=== PATIENT | female | born 1975 | race Caucasian/White ===

== ENCOUNTER 2020-03-16 13:57 | Emergency (ER) | payer OTHER, SELFPAY ==
[2020-03-16 13:54] VITALS: BP 157/106; PULSE 96; RESP 20; TEMP 37.1; O2SAT 100
--- NOTE | 2020-03-16 14:02 | ECG_ITS ---
Measurements Intervals [place] Rate: 91 P: 67 GA: 137 QRS: 58 QRSD: 83 T: 12 QT: 342 QTc: 422 Interpretive Statements SINUS RHYTHM POSSIBLE LEFT ATRIAL ENLARGEMENT BASELINE WANDER- III, AVL, AVF, V3-V6 BORDERLINE ECG Electronically Signed On 03-16-2020 17:31:23 CDT by Miguel Gomez D.O.
[2020-03-16 14:03] VITALS: BP 133/87; PULSE 94; RESP 26; O2SAT 100
[2020-03-16] MEDS: SODIUM CHLORIDE 0.9% IV 1,000 ML 999 ML IV CONT (14:40)
[2020-03-16 14:50] LABS: Basophils Percent Auto 0.5 % (0.2-1.2); Eosinophils Absolute Auto 0.1 K/mm3 (0-0.3); Hematocrit 38.9 % (37.0-47.0); Hemoglobin 12.9 g/dL (12.0-15.0); Immature Granulocyte Absolute 0.01 K/mm3 (0.00-0.031); Immature Granulocyte Percent A 0.2 % (0-0.5); Lymphocytes Absolute Auto 1.71 K/mm3 (0.9-3.2); Lymphocytes Percent Auto 28.4 % (18.3-44.2); Mean Corpuscular HGB Conc 33.2 g/dl (32-36); Mean Corpuscular Hemoglobin 30.1 pg (26-34); Mean Corpuscular Volume 90.7 fl (80-100); Mean Platelet Volume 10.6 fl (7.4-10.4); Monocytes Absolute Auto 0.4 K/mm3 (0.1-0.6); Neutrophils Absolute Auto 3.8 K/mm3 (1.3-6.7); Neutrophils Percent Auto 62.9 % (45.5-73.1); Platelet Count Result 196 k/mm3 (150-375); Red Blood Count 4.29 M/mm3 (4.2-5.4); Red Cell Distribution Width 11.9 % (11.5-14.5)
[2020-03-16 14:53] LABS: Alveolar/Arterial O2 Gradient 40.6 mmHg; Base Excess ABG -1.5 mEq/l (+/-2.0); Carboxyhemoglobin 0.1 % THb (0-2.0); Device ROOM AIR; Fractional Inspired Oxygen 21 %; HCO3 ABG 22.7 mEq/l (22.0-26.0); Methemoglobin ABG 0.4 %THb (0-1.5); Modified Allen's Test Pass; Oxygen Content ABG 16.8 %vol (16.0-22.0); Oxygen Saturation ABG 93.2 % (95.0-100.0); Oxyhemoglobin 91.1 % THb (90.0-100.0); PCO2 ABG 36.6 mmHg (35.0-45.0); PO2 ABG 65.3 mmHg (80.0-100.0); PO2 FiO2 Ratio Arterial Blood 3.11 %; Reduced Hemoglobin 8.4 %THb (0-5.0); Site Drawn LEFT RADIAL; Total Hemoglobin 13.1 g/dL (12.0-18.0)
[2020-03-16 15:02] LABS: Alanine Aminotransferase 13 U/L (4-35); Albumin Level 4.1 g/dL (3.5-5.1); Alkaline Phosphatase 80 U/L (38-126); Aspartate Amino Transferase 19 U/L (14-36); Bilirubin,Total 0.2 mg/dL (0.2-1.3); Blood Urea Nitrogen 19 mg/dL (7-17); Calcium 8.8 mg/dL (8.4-10.2); Carbon Dioxide 24 mmol/L (22-30); Chloride 104 mmol/L (98-107); Estimated Glomerular Filt Rate > 60; Glucose 86 mg/dL (65-105); Sodium 135 mmol/L (137-145)
--- NOTE | 2020-03-16 15:18 | PC.NURSE ---
Pt placed on bedpan by tech, no urine was collected for sample.
[2020-03-16 15:58] VITALS: BP 135/77; PULSE 71; RESP 14; O2SAT 99
[2020-03-16 16:01] LABS: Thyroid Stimulating Hormone Reflex 0.668 uIU/mL (0.465-4.68)
[2020-03-16 16:17] LABS: Amphetamine Screen Urine Negative (Negative); Barbiturate Screen Urine Negative (Negative); Benzodiazepines Screen Urine Negative (Negative); Cannabinoid Screen Urine Negative (Negative); Cocaine Screen Urine Negative (Negative); Methadone Screen Urine Negative (Negative); Opiate Screen Urine Negative (Negative); Phencyclidine Screen Urine Negative (Negative)
--- NOTE | 2020-03-16 16:35 | PC.NURSE ---
Pt ambulating w/o difficulty. Pt stating I am ready to go home. I am feeling back to normal.
--- NOTE | 2020-03-16 16:46 | ED.GENADULT ---
HPI - General Adult General Chief complaint: Neuro Symptoms/Deficit Stated complaint: lightheaded/numbness History of Present Illness HPI narrative: Patient is a 44-year-old female who presents the ER feeling lightheaded and tingly. Reports tingling to her arms and chest and back but not to her face. Upon arrival here breathing heavily and shaking. Reports symptoms began after eating lunch. She started new antibiotic yesterday evening for potential cellulitis of her left foot. No history of panic attacks. Denies any new stressors in her life. No focal weakness of an arm or leg. No chest pain or chest pressure. Related Data Home Medications Medication Instructions Recorded Confirmed sulfamethoxazole-trimethoprim 1 tablet PO HS 03/16/20 03/16/20 [Bactrim] Allergies Allergy/AdvReac Type Severity Reaction Status Date / Time No Known Allergies Allergy Verified 03/16/20 14:01 Review of Systems Review of Systems: All systems reviewed & are unremarkable except as noted in HPI and below Constitutional: Constitutional: Denies chills, Denies fever(s) and Reports weakness ENT: Denies nasal congestion and Denies sore throat Cardiovascular: Cardiovascular: Denies chest pain and Denies radiating jaw, neck or arm pain Respiratory: Respiratory: Denies cough, Denies dyspnea and Denies wheezing Gastrointestinal: Gastrointestinal: Denies abdominal pain, Denies nausea and Denies vomiting Neurologic: Reports dizziness, Denies headache(s), Denies focal weakness and Reports numbness PMFSH Past Medical History Medical History (Updated 03/16/20 @ 16:51 by Kwabena López MD) No pertinent past medical history Surgical History Surgical History (Updated 03/16/20 @ 16:49 by Kwabena López MD) No pertinent past surgical history Social History Social History (Updated 03/16/20 @ 16:49 by Kwabena López MD) Smoking status: Never smoker Gender identity (if verbalized by the patient): Female Exam Narrative: Exam Narrative: GENERAL: Well-appearing, well-nourished, and in no acute distress. HEAD: Normocephalic, atraumatic. EYES: PERRL and EOMI. ENT: Mucous membranes moist. CHEST: Clear to auscultation. No respiratory distress. HEART: Regular rate and rhythm. Normal peripheral pulses. ABDOMEN: Soft, nontender, nondistended. EXTREMITIES: Normal range of motion. Abrasions to left foot with slight warmth over the dorsal aspect of the left foot. No purulent drainage or overt cellulitis. NEURO: No focal deficits. Alert and oriented x3. PSYCH: Flat affect and speaking very slowly. Course Course Emergency Course: Patient hydrated. Feels much better at this time. Informed of results. Discharge home. Possible anxiety attack versus adverse reaction to medication. Will discontinue Bactrim and start on Keflex. Vital Signs Vital signs: Vital Signs Temperature 98.7 F 03/16/20 13:54 Pulse Rate 96 03/16/20 13:54 Respiratory Rate 20 03/16/20 13:54 Blood Pressure 157/106 H 03/16/20 13:54 Pulse Oximetry 100 03/16/20 13:54 Temperature 98.7 F 03/16/20 13:54 Pulse Rate 71 03/16/20 15:58 Respiratory Rate 14 03/16/20 15:58 Blood Pressure 135/77 03/16/20 15:58 Pulse Oximetry 99 03/16/20 15:58 Medical Decision Making Vital Signs Vital Signs: Vital Signs Temperature 98.7 F 03/16/20 13:54 Pulse Rate 96 03/16/20 13:54 Respiratory Rate 20 03/16/20 13:54 Blood Pressure 157/106 H 03/16/20 13:54 Pulse Oximetry 100 03/16/20 13:54 Temperature 98.7 F 03/16/20 13:54 Pulse Rate 71 03/16/20 15:58 Respiratory Rate 14 03/16/20 15:58 Blood Pressure 135/77 03/16/20 15:58 Pulse Oximetry 99 03/16/20 15:58 Lab Data Result diagrams: 03/16/20 14:44 03/16/20 14:44 Labs: Lab Results 03/16/20 03/16/20 03/16/20 Range/Units 14:44 14:44 14:44 WBC 6.0 (4.5-10.0) K/mm3 RBC 4.29 (4.2-5.4) M/mm3 Hgb 12.9 (12.0-15.
[2020-03-16 17:00] VITALS: BP 127/84; PULSE 85; RESP 17; O2SAT 100
== END 2020-03-16 17:01 | disposition home or self-care (01) ==
PROVIDERS: Emergency Provider Emergency Medicine; PCP Family Medicine
DX: R20.2 Paresthesia of skin (principal); T36.8X5A Adverse effect of other systemic antibiotics, initial encounter
CPT/HCPCS: 36415; 36600; 80053; 80307; 82375; 82805; 83050; 84443; 85025; 93005; 96360; 99283; J7030

== ENCOUNTER 2020-11-22 09:53 | Emergency (ER) | payer OTHER, SELFPAY ==
--- NOTE | ~2020-11-22 | XR_ITS ---
EXAMINATION: XR chest 2V EXAM DATE: 11/22/2020 11:18 INDICATION: Lightheadedness, dizziness, high blood pressure. TECHNIQUE: Frontal and lateral projections of the chest obtained and reviewed. Comparison is made to prior examination from 12/06/2018. FINDINGS: The lungs are clear. There are no pleural effusions. The cardiomediastinal silhouette is within normal limits. There is no pneumothorax suspected. There is mild upper thoracic levoscoliosi s, lower thoracic dextroscoliosis. IMPRESSION: No acute cardiopulmonary findings. Reviewed, dictated and finalized at location B. D UP COMEDIAN
[2020-11-22 10:04] VITALS: BP 140/78; PULSE 81; RESP 18; TEMP 36.3; O2SAT 100
[2020-11-22 10:08] VITALS: PULSE 76
[2020-11-22 10:16] LABS: Basophils Percent Auto 0.3 % (0.2-1.2); Eosinophils Absolute Auto 0.1 K/mm3 (0-0.3); Eosinophils Percent Auto 1.3 % (0-4.4); Hematocrit 41.5 % (37.0-47.0); Hemoglobin 13.8 g/dL (12.0-15.0); Immature Granulocyte Absolute 0.01 K/mm3 (0.00-0.031); Immature Granulocyte Percent A 0.2 % (0-0.5); Lymphocytes Absolute Auto 2.26 K/mm3 (0.9-3.2); Lymphocytes Percent Auto 35.4 % (18.3-44.2); Mean Corpuscular HGB Conc 33.3 g/dl (32-36); Mean Corpuscular Hemoglobin 30.1 pg (26-34); Mean Corpuscular Volume 90.4 fl (80-100); Monocytes Absolute Auto 0.4 K/mm3 (0.1-0.6); Monocytes Percent Auto 6.1 % (2.6-8.5); Neutrophils Absolute Auto 3.6 K/mm3 (1.3-6.7); Neutrophils Percent Auto 56.7 % (45.5-73.1); Platelet Count Result 225 k/mm3 (150-375); Red Blood Count 4.59 M/mm3 (4.2-5.4); Red Cell Distribution Width 11.7 % (11.5-14.5); White Blood Count 6.4 K/mm3 (4.5-10.0)
[2020-11-22 10:24] LABS: Add Urine Microscopic? YES; Appearance Urine Clear (Clear); Bacteria Urine Trace /hpf; Bilirubin Urine Negative (Negative); Blood Urine Negative (Negative); Color Urine Colorless (Yellow); Glucose Urine UA Negative (Negative); Ketones Urine Negative (Negative); Leukocyte Esterase Ur Trace LEU/UL (Negative); Nitrate Urine Negative (Negative); Protein Urine Negative (Negative); RBC Urine 0-2 /hpf (0-2); Specific Grav Ur 1.005 (1.001-1.035); Squamous Epithelial Cell Urine Occasional /hpf (Few); Urobilinogen Urine Negative mg/dL (<2.0); WBC Urine 0-3 /hpf
[2020-11-22 10:29] LABS: Alanine Aminotransferase 15 U/L (4-35); Albumin Level 4.5 g/dL (3.5-5.1); Alkaline Phosphatase 66 U/L (38-126); Anion Gap 9 mmol/L (8-16); Aspartate Amino Transferase 23 U/L (14-36); Bilirubin,Total 0.7 mg/dL (0.2-1.3); Blood Urea Nitrogen 20 mg/dL (7-17); Carbon Dioxide 25 mmol/L (22-30); Chloride 106 mmol/L (98-107); Estimated CRCL calculation 76 ml/min; Estimated Glomerular Filt Rate > 60; Glucose 88 mg/dL (65-105); Potassium 3.5 mmol/L (3.4-5.0); Sodium 140 mmol/L (137-145)
--- NOTE | 2020-11-22 11:11 | ECG_ITS ---
Measurements Intervals [place] Rate: 67 P: 71 PA: 130 QRS: 74 QRSD: 82 T: 26 QT: 402 QTc: 426 Interpretive Statements SINUS RHYTHM POSSIBLE LEFT ATRIAL ENLARGEMENT INCOMPLETE RIGHT BUNDLE BRANCH BLOCK BASELINE WANDER- III BORDERLINE ECG Electronically Signed On 11-22-2020 11:36:10 MASK DESIGN ENGINEER by Miguel Gomez D.O.
--- NOTE | 2020-11-22 11:12 | ED.GENADULT ---
HPI - General Adult General Chief complaint: Unspecified Stated complaint: Unspecified Time Seen by Provider: 11/22/20 10:18 Source: patient Mode of arrival: ambulatory Limitations: no limitations History of Present Illness HPI narrative: This is a 45-year-old female that presents to the emergency department for not feeling right. Reports she was feeling lightheaded and just generally unwell. Reports she saw some CBD oil in her cabinet. Reports she took the rest of it. Reports since she is really not feeling great. Reports she feels out of her body. Denies fever, chest pain, shortness of breath, abdominal pain, vomiting, or dysuria. Related Data Home Medications Medication Instructions Recorded Confirmed No Home Medications 11/22/20 11/22/20 Allergies Allergy/AdvReac Type Severity Reaction Status Date / Time sulfamethoxazole Allergy Other Verified 11/22/20 10:06 [From Bactrim] trimethoprim [From Bactrim] Allergy Other Verified 11/22/20 10:06 Review of Systems Review of Systems: Narrative: CONSTITUTIONAL: Denies fever CARDIOVASCULAR: Denies chest pain RESPIRATORY: Denies dyspnea. GASTROINTESTINAL: Denies vomiting GENITOURINARY: Denies dysuria or hematuria. All systems reviewed & are unremarkable except as noted in HPI and below PMFSH Past Medical History Medical History (Updated 11/22/20 @ 13:26 by Nella Spencer PA-C) Benign essential tremor No pertinent past medical history Surgical History Surgical History (Updated 03/18/20 @ 08:17 by Shawna Weber) No pertinent past surgical history Family History Family History (System 03/18/20 @ 08:17 by Shawna Weber) Mother Hypertension Father Hypertension Family history of diabetes mellitus in first degree relative Family history of obesity Sibling Asthma Grandparent Carcinoma of colon Family history of Alzheimer's disease Family history of malignant neoplasm of uterus Social History Social History (System 03/18/20 @ 08:17 by Shawna Weber) Social History: , 2 children ages 4 yrs and 7 yrs. Retired nurse. Smoking status: Never smoker Alcohol intake: current Gender identity (if verbalized by the patient): Female Exam Narrative: Exam Narrative: GENERAL: Well-appearing, well-nourished, and in no acute distress. HEAD: Normocephalic, atraumatic. EYES: PERRLA and EOMI. ENT: Nares clear, no rhinorrhea or epistaxis. Mucous membranes moist. Oropharynx without tonsillar hypertrophy exudate or other lesions. Bilateral TMs pearly thomason non-bulging NECK: Supple. No adenopathy or masses. CHEST: Clear to auscultation. No respiratory distress. No wheezes rales or rhonchi HEART: Regular rate and rhythm. No murmur heard. Normal peripheral pulses. EXTREMITIES: Normal range of motion. No edema. SKIN: Warm, dry, no rash. NEURO: No focal deficits. Alert and oriented x3. Cranial nerves II through XII grossly intact PSYCH: Anxious Course Vital Signs Vital signs: Vital Signs Temperature 97.4 F L 11/22/20 10:04 Pulse Rate 81 11/22/20 10:04 Respiratory Rate 18 11/22/20 10:04 Blood Pressure 140/78 11/22/20 10:04 Pulse Oximetry 100 11/22/20 10:04 Temperature 97.4 F L 11/22/20 10:04 Pulse Rate 76 11/22/20 10:08 Respiratory Rate 18 11/22/20 10:04 Blood Pressure 140/78 11/22/20 10:04 Pulse Oximetry 100 11/22/20 10:04 Medical Decision Making MDM Narrative Medical decision making narrative: Patient presents the emergency department after an episode of lightheadedness this morning. She proceeded to take some CBD oil after which made her feel worse. Hydrated while in the ED with improvement in symptoms. Reports she feels much better now. Her vitals are stable. CBC and metabolic panel without concerning findings. UA without evidence of infection. TSH is normal. Bedside test was negative. Chest x-ray without acute findings. EKG without concerning changes. Mar
[2020-11-22] MEDS: SODIUM CHLORIDE 0.9% IV 1,000 ML 999 ML IV CONT (11:25)
[2020-11-22 13:33] VITALS: BP 122/85; PULSE 68; RESP 18; O2SAT 97
[2020-11-22 14:00] LABS: Amphetamine Screen Urine Negative (Negative); Barbiturate Screen Urine Negative (Negative); Benzodiazepines Screen Urine Negative (Negative); Cannabinoid Screen Urine Positive (Negative); Cocaine Screen Urine Negative (Negative); Methadone Screen Urine Negative (Negative); Opiate Screen Urine Negative (Negative); Phencyclidine Screen Urine Negative (Negative)
== END 2020-11-22 13:35 | disposition home or self-care (01) ==
PROVIDERS: Physician Assistant; Emergency Provider Emergency Medicine
DX: R42 Dizziness and giddiness (principal); I45.10 Unspecified right bundle-branch block; R94.31 Abnormal electrocardiogram [ECG] [EKG]
CPT/HCPCS: 36415; 71046; 80053; 80307; 81001; 81025; 84443; 85025; 93005; 96360; 99283; J7030

== ENCOUNTER 2021-01-21 10:00 | Outpatient (RCR) | payer OTHER, SELFPAY ==
--- NOTE | 2020-12-05 14:00 | PTOPEVAL ---
INITIAL PHYSICAL THERAPY EVALUATION and PLAN OF CARE Thank you for referring Zahida Broussard to [facility].? Zahida is scheduled to be seen for physical therapy? 1x/week for 6 weeks. Please review, sign, date and return this plan of care BAILEY. I agree with and certify that the following plan of care is medically necessary. Referring Physician Date Admitting Provider: Attending Provider: Ivory Mora, VISITING PROFESSOR Referring Provider: *PT Outpatient Evaluation Start: 12/05/20 12:39 Freq: Status: Active Protocol: Document 12/05/20 12:35 JUAN (Rec: 12/05/20 14:00 JUAN [id number]) Therapy Assessment Status Assessment Status Assessment Status Evaluation Outpatient Past Medical History Neurological History Hx Other Neurological Disorders Yes: nonintentional tremors - hands/arms Evaluation Information Problem Diagnosis urinary incontinence Onset worsening over last year Cause childbirth with 1st child Subjective Information Zahida stated began to have Query Text:As Reported By Patient/ leakage with any type of Family activity, exertion, cough, sneeze. On occasions will have increase in leakage if full bladder. She feels it really started after of 1st child - prolonged labor and delivery. Prior Level of Function Activity Level (Last 3 Months) Occupation homemaker RN by education Hand Dominance Right Medications Home Meds (Include: OTC, RX, Vitamins, none Herbals, Dose, Route,and Frequency) Query Text:Home Med Entries Will No Longer Recall From Past Visits. Home Meds Must Be Re-entered With Each Visit. Home Setting Home Type House,Multiple Levels Environmental Barriers Stairs, Greater than 4 Living Situation With Minor Child,With Spouse Mobility Assistive Devices (Used Last 3 None Months) Comments Additional Prior Level of Function recreation - playing with Comments children, used to walk and exercise - limited since onset COVID Pain Assessment Timing of Pain Assessment Timing of Pain Assessment Assessment Self Report Self Report Pain Level 0 Pain Score Pain Score 0: Self Report Cervical and Lumbar ROM Lumbar ROM Lumbar ROM WNL Normal Lumbar Segmental Motion Yes Lumbar Comments symmetrical SIJ mobility with standing flexion test Lower Extremity Range of Motion Hi
--- NOTE | 2021-01-21 10:53 | PTOPEVAL ---
PHYSICAL THERAPY DISCHARGE SUMMARY Thank you for referring Zahida Broussard to [facility].? Zahida has been seen for a total of 7 visits. She has met all goals set - increased levator ani strength, decrease use of pads, and improved functional abilities. She is ready for discharge from PT to [facility]. I agree with Zahida's discharge from PT. Referring Physician Date Attending Provider: Ivory Mora, CONING MACHINE OPERATOR Therapy Assessment Status Assessment Status Assessment Status Discharge Evaluation Information Problem Diagnosis urinary incontinence Subjective Information Zahida reports that she is Query Text:As Reported By Patient/ still getting up in morning Family around 5 a.m. - unable to go back to sleep. Not having to urinate every several hours - able to go longer between urinations. Changing pads less - only once a day rather than with every urination. Getting the exercises in whenever she can. Pain Assessment Timing of Pain Assessment Timing of Pain Assessment Assessment Self Report Self Report Pain Level 0 Pain Score Pain Score 0: Self Report Pelvic Health Evaluation Pelvic Floor Assessment Sustained Levator Ani Strength 3/5 - able to hold x 10 cts Quick Levator Ani Contraction in 15 7 reps - increased contraction Seconds intensity throughout Pelvic Health Therapy Pelvic Health Exercise Isolated Levator Ani Contraction on ther ex ball - 10 ct/hold Query Text:Position, Hold/Relaxation relax - 5 reps Time, Repetitions Quick Contractions on ball - 10 reps Query Text:Position, Repetitions Therapeutic Ball side/side, front/back, CW/CCW, Query Text:Movement Direction, fig 8x 15 Repetitions Elevator Techniques going up 4 fls,5 ct holdx5 Query Text:Repetitions, Number of reps;going down 3 step x 5 Steps Going Up, Number of Steps Going reps;variable x 5 Down Resistive 'Shh' Technique long,soft x 5 reps, quick, Query Text:Quick, Hard, Long, Soft, hard x 5 reps Number of Repetitions Exercise Limitations Muscle Weakness Response to Exercise Increased Endurance,Increased Strength Endurance Excellent Rehab Teaching Rehab Teaching Teaching Topic Rehab Teaching Topic Components Anatomy/Physiology,Body Mechanics,Exercise,Home Program As Pertains To Plan of Care Discussion, Progression,Technique Recipient
== END 2021-01-22 14:19 | disposition home or self-care (01) ==
LOC: ANHPT 10:00
PROVIDERS: PCP Nurse Practitioner Obstetrics & Gynecology; Visit Provider Nurse Practitioner Obstetrics & Gynecology
DX: R32 Unspecified urinary incontinence (principal)
CPT/HCPCS: 97110; 97161